=== PATIENT | female | born 1955 | race Two or more races ===

== ENCOUNTER → 2024-03-18 | Outpatient (CLI) | payer OTHER, SELFPAY ==
--- NOTE | 2024-03-18 08:45 | XR_ITS ---
Examination: Screening digital mammography, bilateral Computer aided detection 3-D breast Tomosynthesis, bilateral Date and time of exam: March 18, 2024 at 0842 hours Compared to mammograms dating to October 30, 2005 Indication: Screening Technique: Nonmagnified MLO, CC views of the breasts to been obtained, reconstructed from 3-D Tomosynthesis images. R2 computer aided detection program utilized for evaluation of suspicious masses and/or abnormal calcifications. 3-D Tomosynthesis images obtained. Findings: The breasts are heterogeneously dense, which may obscure small masses 16 mm focal asymmetry nipple level left breast mid depth Benign calcifications Impression: BI-RADS Category 0: Incomplete: Need additional imaging evaluation 16 mm focal asymmetry nipple level left breast mid depth, recommend follow-up spot tomographic views of this asymmetry as well as left breast sonography to complete the workup.
== END | disposition home or self-care (01) ==
LOC: CDIM 08:36
PROVIDERS: Referring Provider Nurse Practitioner Family; Visit Provider Nurse Practitioner Family
DX: Z12.31 Encounter for screening mammogram for malignant neoplasm of breast (principal); R92.8 Other abnormal and inconclusive findings on diagnostic imaging of breast; N64.89 Other specified disorders of breast
CPT/HCPCS: 77063; 77067